=== PATIENT | male | born 2000 | race Caucasian/White ===

== ENCOUNTER 2024-01-13 21:02 | Emergency (ER) | payer BC, MEDICAID ==
[~2024-01-13] VITALS: Ht 180.3 cm; Wt 102.1 kg
[2024-01-13 21:05] VITALS: BP_SYST 158; PULSE 74; RESP 16; TEMP 96.1; O2SAT 100
[2024-01-13] MEDS: HYDROcodone/ACETAMIN 5-325 MG TAB (NORCO/ VICODIN) PO ONE (22:00)
[2024-01-13] MEDS ORDERED: NAPR-690 PO (23:03)
[2024-01-13 23:09] VITALS: BP_SYST 145; PULSE 74; RESP 16; TEMP 96.1; O2SAT 100
== END 2024-01-13 23:05 | disposition home or self-care (01) ==
LOC: SED 21:02
DX: S23.3XXA Sprain of ligaments of thoracic spine, initial encounter (principal); Z79.899 Other long term (current) drug therapy; X50.0XXA Overexertion from strenuous movement or load, initial encounter; Y93.89 Activity, other specified; Y92.89 Other specified places as the place of occurrence of the external cause; Y99.8 Other external cause status
CPT/HCPCS: 72072; 99283